=== PATIENT | female | born 1980 | race Two or more races ===

== ENCOUNTER 2017-02-20 05:58 | Emergency (ER) | payer OTHER ==
--- NOTE | ~2017-02-20 | ER ---
PATIENT'S NAME: LYDIA KUMAR [facility] AGE: 36 Y [address] ROOM: [place] [id number] LOCATION: [facility] ADMIT DATE: 02/20/2017 ER/Outpatient Report DISCHARGE DATE: 02/20/2017 FAMILY PHYSICIAN: Karen Ramirez MD ATTENDING PHYSICIAN: Marty Garcia CHIEF COMPLAINT: Cut to the left wrist. HISTORY OF PRESENT ILLNESS: Around 4:30 this morning, Ms. Kumar was working at her place of employment when she cut her left wrist on the pinky side on a piece of equipment at work. She was able to finish her shift with a bandage and came in for evaluation. She states she is 100% positive her tetanus was updated within the last 2 years. Denies any other issues. She does endorse some tingling sensation in her thumb and index finger. No other issues. PAST MEDICAL HISTORY: Documented on the record and reviewed by me. SOCIAL HISTORY: Documented on the record and reviewed by me. MEDICATIONS: Documented on the record and reviewed by me. ALLERGIES: DOCUMENTED ON THE RECORD AND REVIEWED BY ME. REVIEW OF SYSTEMS: All systems were reviewed and negative except as noted in the HPI. PHYSICAL EXAMINATION: VITAL SIGNS: Blood pressure 105/64, pulse is 61, respiratory rate 16, temperature 98.4, and SpO2 is 97% on room air. Pain is rated 7/10. GENERAL: An age-appropriate female, recumbent on the exam table, in no apparent pain or distress. NEUROLOGIC: Awake and alert. No obvious abnormalities. HEENT: Normocephalic, atraumatic. Eyes are PERRL. Oropharynx is clear. NECK: Supple. Trachea is midline. CHEST: Even and unlabored respirations. HEART: Regular rate and rhythm with no murmurs. ABDOMEN: Benign. EXTREMITIES: Warm, well formed, and well perfused with no obvious abnormalities. The left distal ulna, approximately 1 cm proximal to the ulnar PATIENT'S NAME: LYDIA KUMAR [facility] AGE: 36 Y [address] ROOM: [place], [place] [id number] LOCATION: [facility] ADMIT DATE: 02/20/2017 ER/Outpatient Report DISCHARGE DATE: 02/20/2017 FAMILY PHYSICIAN: Karen Ramirez MD ATTENDING PHYSICIAN: Jose,Marty styloid, does have a laceration measuring 1.3 cm. It is full thickness. It does move subcutaneously. No visible tendon involvement. No foreign material is appreciated in the wound tract. LABORATORY AND X-RAY DATA: Plain films do not reveal any osseous abnormalities or retained foreign bodies. IMPRESSION: Left wrist laceration associated with work. EMERGENCY DEPARTMENT COURSE: The patient was seen and evaluated. Based on the exam, x-rays were indicated as noted above. She did receive wound exploration at bedside in a bloodless field. Not able to identify any bone or tendinous involvement. The wound was copiously irrigated with syringe irrigation by normal saline. The area was infiltrated with 2 mL of 1% lidocaine without epinephrine. The wound was cleaned vigorously. It was approximated with three 4-0 Prolene sutures in simple interrupted fashion. The patient tolerated the procedure well. Sutures out in 5 days. Wound care was discussed. Return if any signs of infection. All questions were answered, and the patient was discharged. MD DANIEL ARREOLA/emily /[id number] d: t: 02/20/17 1215, OUTPATIENT REPORT
== END 2017-02-20 06:45 | disposition disaster alternative care site (69) ==
LOC: GACC 05:58
PROC: 0HQEXZZ Repair Left Lower Arm Skin, External Approach (ICD-10-PCS; principal; 2017-02-20)
DX: S61.512A Laceration without foreign body of left wrist, initial encounter (principal); Z88.8 Allergy status to other drugs, medicaments and biological substances; Z79.891 Long term (current) use of opiate analgesic; Z79.899 Other long term (current) drug therapy; W26.8XXA Contact with other sharp object(s), not elsewhere classified, initial encounter; Y99.0 Civilian activity done for income or pay